=== PATIENT | male | born 1965 | race Caucasian/White ===

== ENCOUNTER → 2022-09-30 09:25 | Outpatient (CLI) | payer BC, SELFPAY ==
--- NOTE | ~2022-09-30 | XR_ITS ---
Left Hand Technique: PA, oblique, and lateral views were obtained. Clinical History: Pain Findings: No acute fracture or dislocation is seen. There is advanced osteoarthritis at the first CMC joint. Remaining joint spaces are preserved. Soft tissues are unremarkable. Impression: Advanced osteoarthritis of the first CMC joint. Reviewed, dictated and finalized at location . Impression: Advanced osteoarthritis of the first CMC joint.
--- NOTE | ~2022-09-30 | XR_ITS ---
Left wrist Technique: PA, oblique, lateral, and ulnar deviation views were obtained. Clinical History: Pain Findings: No acute fracture or dislocation is seen. There is advanced osteoarthritis at the first CMC joint. Remaining joint spaces are preserved.. Soft tissues are unremarkable. Impression: Advanced osteoarthritis of the first CMC joint. Reviewed, dictated and finalized at location . Impression: Advanced osteoarthritis of the first CMC joint.
== END ==
PROVIDERS: PCP Internal Medicine; Visit Provider Plastic Surgery
DX: M19.032 Primary osteoarthritis, left wrist (principal); M19.042 Primary osteoarthritis, left hand
CPT/HCPCS: 73110; 73130